=== PATIENT | female | born 1995 | race Caucasian/White ===

== ENCOUNTER 2017-01-29 22:45 | Emergency (ER) | payer BC, OTHER ==
--- NOTE | 2017-01-29 23:07 | ERPHSYRPT ---
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 Pt sts went to restroom after intercourse and passed a dime sized clot. Pt unsure if she is still bleeding. Pt is . Pt LMP 12/15/16. Pt is 7 weeks gestation, has not had first appt with OB. Triage Nursing Assessment: Pt alert, oriented, answers all questions appropriately. Skin flushed, warm, dry. Resps non-labored. Pt tearful at triage. Ambulatory to tx room, steady gait noted. Physician History: The patient is a 22-year-old female at 7 weeks based upon last menstrual period of 12/15/16, who complains of having intercourse prior to arrival and then passing a dime sized clot per vagina. The patient denies cramping. She is concerned that maybe she is having a miscarriage. Her first appointment with an OB is February 15. Her past medical history is unremarkable. Timing/Duration: hour(s) (1), sudden Activites at Onset: sexual activity Onset Location: vaginal Pain Radiation: none Severity of Pain-Max: none Severity of Pain-Current: none Prior abdominal problems: none Sexual intercourse history: other (pt is ) Modifying Factors: Improves With: nothing Associated Symptoms: vaginal discharge Allergies/Adverse Reactions: No Known Drug Allergies Allergy (Unverified 01/29/17 23:02) Home Medications: Vits W-Ca,Fe,FA(<1Mg) [] 1 each PO DAILY 01/29/17 [History] - Review of Systems Constitutional: No Fever, No Chills Eyes: No Symptoms Ears, Nose, & Throat: No Symptoms Respiratory: No Cough, No Dyspnea Cardiac: No Chest Pain, No Edema, No Syncope Abdominal/Gastrointestinal: No Abdominal Pain, No Nausea, No Vomiting, No Diarrhea Genitourinary Symptoms: Vaginal Bleeding Musculoskeletal: No Back Pain, No Neck Pain Skin: No Rash Neurological: No Dizziness, No Focal Weakness, No Sensory Changes Psychological: No Symptoms Endocrine: No Symptoms Hematologic/Lymphatic: No Symptoms Immunological/Allergic: No Symptoms All Other Systems: Reviewed and Negative - Social History Smoking Status: Never smoker Exposure to second hand smoke: No Patient Lives Alone: No - Female History Hx Last Menstrual Period: 12/15/16 Hx Now: Yes (7 weeks gestation per pt) - Nursing Vital Signs Nursing Vital Signs: Initial Vital Signs Temperature 99.3 F 01/29/17 22:54 Pulse Rate 107 H 01/29/17 22:54 Respiratory Rate 16 01/29/17 22:54 Blood Pressure 130/73 01/29/17 22:54 O2 Sat by Pulse Oximetry 100 01/29/17 22:54 - Physical Exam General Appearance: no apparent distress, alert Eye Exam: PERRL/EOMI, eyes nml inspection Ears, Nose, Throat Exam: normal ENT inspection, TMs normal, pharynx normal, moist mucous membranes Neck Exam: normal inspection, non-tender, supple, full range of motion Respiratory Exam: normal breath sounds, lungs clear, No respiratory distress Cardiovascular Exam: regular rate/rhythm, normal heart sounds, normal peripheral pulses Gastrointestinal/Abdomen Exam: soft, No tenderness, No mass Pelvic Exam: not done Rectal Exam: not done Back Exam: normal inspection, normal range of motion, No CVA tenderness, No vertebral tenderness Extremity Exam: normal inspection, normal range of motion, pelvis stable Neurologic Exam: alert, oriented x 3, 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, 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, normal mood/affect, sensation nml, No motor deficits Skin Exam: normal color, warm, dry Lymphatic Exam: No adenopathy SpO2 Interpretation: normal SpO2: 100 Oxygen Delivery: Room Air Ordered Tests: Active Orders 24 hr Category Date Time Status Clean Catch Urine Specimen STAT Care 01/29/17 23:46 Active BMP Stat Lab 01/29/17 23:15 Completed CBC W DIFF Stat Lab 01/29/17 23:15 Completed CULTURE,URINE Stat Lab 01/29/17 23:45 Received HCG QUALITATIVE,SERUM Stat Lab 01/29/17 23:15 Completed HCG, Quantitative (Inhouse) Stat Lab 01/29/17 23:15 Completed UA W/ MICROSCOPIC Stat Lab 01/29/17 23:45 Completed Lab/Rad Data: Laboratory Result Diagrams 01/29/17 23:15 01/29/17 23:15 Laboratory Results 01/29/17 01/29/17 01/29/17 Range/Units 23:45 23:15 23:15 WBC (4.0-10.5) K/mm3 RBC (4.1-5.4) M/mm3 Hgb (12.0-16.0) gm/dl Hct (35-47) % MCV (78-100) fl MCH (26-32) pg MCHC (32-36) g/dl RDW (11.5-14.0) % Plt Count (150-450) K/mm3 MPV (6-9.5) fl Gran % (36.0-66.0) % Lymphocytes % (24.0-44.0) % Monocytes % (0.0-12.0) % Eosinophils % (0.00-5.0) % Basophils % (0.0-0.4) % Basophils # (0-0.4) Sodium 142 (136-145) mEq/L Potassium 3.6 (3.5-5.1) mEq/L Chloride 106 (98-107) mEq/L Carbon Dioxide 24.9 (21-32) mEq/L Anion Gap 14.7 (5-15) MEQ/L BUN 15 (9-20) mg/dL Creatinine 0.74 (0.55-1.30) mg/dl Estimated GFR > 60 ML/MIN Glucose 102 (70-110) MG/DL Calcium 8.9 (8.5-10.1) mg/dL Beta HCG, Quant 88470 H (0-6) IU/L Serum , Qual POSITIVE (Negative) Ur Collection Type CLEAN CATCH Urine Color PINK (YELLOW) Urine Appearance SLIGHTLY CLOUDY (CLEAR) Urine pH 6.5 (5-6) Ur Specific [place] 1.010 (1.005-1.025) Urine Protein TRACE (Negative) Urine Ketones NEGATIVE (NEGATIVE) Urine Blood 250 (0-5) Jonnie/ul Urine Nitrite NEGATIVE (NEGATIVE) Urine Bilirubin NEGATIVE (NEGATIVE) Urine Urobilinogen NORMAL (0-1) mg/dL Ur Leukocyte Esterase TRACE (NEGATIVE) Urine Microscopic RBC 50-100 (0-2) /HPF Urine Microscopic WBC 2-5 (0-5) /HPF Ur Epithelial Cells FEW (FEW) /HPF Urine Bacteria RARE (NEGATIVE) /HPF Urine Sperm PRESENT (NEGATIVE) /HPF Urine Culture Reflexed YES (NO) Urine Glucose NEGATIVE (NEGATIVE) mg/dL Specimen Received 01/29/17 2345 01/29/17 Range/Units 23:15 WBC 13.7 H (4.0-10.5) K/mm3 RBC 4.34 (4.1-5.4) M/mm3 Hgb 12.3 (12.0-16.0) gm/dl Hct 37.8 (35-47) % MCV 87.1 (78-100) fl MCH 28.3 (26-32) pg MCHC 32.5 (32-36) g/dl RDW 14.2 H (11.5-14.0) % Plt Count 267 (150-450) K/mm3 MPV 10.2 H (6-9.5) fl Gran % 69.9 H (36.0-66.0) % Lymphocytes % 21.8 L (24.0-44.0) % Monocytes % 7.5 (0.0-12.0) % Eosinophils % 0.7 (0.00-5.0) % Basophils % 0.1 (0.0-0.4) % Basophils # 0.02 (0-0.4) Sodium (136-145) mEq/L Potassium (3.5-5.1) mEq/L Chloride (98-107) mEq/L Carbon Dioxide (21-32) mEq/L Anion Gap (5-15) MEQ/L BUN (9-20) mg/dL Creatinine (0.55-1.30) mg/dl Estimated GFR ML/MIN Glucose (70-110) MG/DL Calcium (8.5-10.1) mg/dL Beta HCG, Quant (0-6) IU/L Serum , Qual (Negative) Ur Collection Type Urine Color (YELLOW) Urine Appearance (CLEAR) Urine pH (5-6) Ur Specific [place] (1.005-1.025) Urine Protein (Negative) Urine Ketones (NEGATIVE) Urine Blood (0-5) Jonnie/ul Urine Nitrite (NEGATIVE) Urine Bilirubin (NEGATIVE) Urine Urobilinogen (0-1) mg/dL Ur Leukocyte Esterase (NEGATIVE) Urine Microscopic RBC (0-2) /HPF Urine Microscopic WBC (0-5) /HPF Ur Epithelial Cells (FEW) /HPF Urine Bacteria (NEGATIVE) /HPF Urine Sperm (NEGATIVE) /HPF Urine Culture Reflexed (NO) Urine Glucose (NEGATIVE) mg/dL Specimen Received - Progress Progress: unchanged Counseled pt/family regarding: lab results, diagnosis, need for follow-up - Departure Time of Disposition: 00:41 Departure Disposition: Home Clinical Impression: Threatened spontaneous Condition: Stable Critical Care Time: No Referrals: BETTY BOO [Primary Care Provider] - Additional Instructions: You had an episode of vaginal bleeding after intercourse which could possibly indicate a threatened spontaneous . [place] [address]. Please follow- up in 2-3 days for a repeat HCG.
[2017-01-29 23:30] LABS: BASOPHIL % 0.1 % (0.0-0.4); Eosinophil % 0.7 % (0.00-5.0); Granulocytes % 69.9 % (36.0-66.0); Lymphocytes % 21.8 % (24.0-44.0); Mean Cell Volume 87.1 fl (78-100); Mean Corpuscular Hemoglobin 28.3 pg (26-32); Mean Platelet Volume 10.2 fl (6-9.5); Monocytes % 7.5 % (0.0-12.0); Platelet Count 267 K/mm3 (150-450); Red Blood Count 4.34 M/mm3 (4.1-5.4); Red Cell Distribution Width 14.2 % (11.5-14.0); White Blood Count 13.7 K/mm3 (4.0-10.5)
[2017-01-30 00:05] LABS: ANION GAP 14.7 MEQ/L (5-15); BLOOD UREA NITROGEN 15 mg/dL (9-20); CHLORIDE 106 mEq/L (98-107); Carbon Dioxide 24.9 mEq/L (21-32); Glucose 102 MG/DL (70-110); HCG, Quantitative (Inhouse) 73687 IU/L (0-6); Potassium 3.6 mEq/L (3.5-5.1); SODIUM 142 mEq/L (136-145)
[2017-01-30 00:21] VITALS: BP 116/56
[2017-01-30 00:27] LABS: Collection Type CLEAN CATCH
[2017-01-30 00:28] LABS: Bacteria RARE /HPF (NEGATIVE); Bilirubin NEGATIVE (NEGATIVE); Blood 250 Ery/ul (0-5); COMPLETE URINE MICROSCOPIC? YES; Epithelial Cells FEW /HPF (FEW); Glucose NEGATIVE (NEGATIVE); Leukocyte Esterase TRACE (NEGATIVE)
[2017-01-30 00:29] LABS: ADD URINE CULTURE? YES (NO)
[2017-01-30 00:44] VITALS: O2SAT 100
[2017-01-30 01:05] VITALS: PULSE 80
== END 2017-01-30 01:05 | disposition home or self-care (01) ==
LOC: ED 22:45
DX: O20.0 Threatened abortion (principal)
CPT/HCPCS: 36000; 36415; 80048; 81000; 84702; 84703; 85025; 87086; 99282